=== PATIENT | female | born 1945 | race Caucasian/White ===

== ENCOUNTER 2020-04-18 08:25 | Emergency (ER) | payer MEDICARE, SELFPAY ==
--- NOTE | 2020-04-18 08:37 | ED.SKABFB ---
HPI - Skin/Abscess/Foreign Bdy General Chief complaint: Skin/Abscess/Foreign Body Stated complaint: Rash on feet/chest/eyes Time Seen by Provider: 04/18/20 08:46 Source: patient and RN notes reviewed Mode of arrival: ambulatory Limitations: no limitations History of Present Illness HPI narrative: This is a 74 years old female presents to the office for an evaluation of itchy rash on her left foot for one week. She was working outside in her yard prior to rash. She has tried calamine lotion and benadry with minimal relief. Denies sick contact. She recently move here; so she does not have a PCP yet. Admits to history of HTN, HLD, and chronic swelling legs (mostly in the right leg). Denies history of DVT. Related Data Home Medications Medication Instructions Recorded Confirmed amlodipine 04/18/20 atorvastatin 04/18/20 hydrochlorothiazide 04/18/20 lisinopril 04/18/20 Allergies Allergy/AdvReac Type Severity Reaction Status Date / Time No Known Allergies Allergy Verified 04/18/20 08:39 Review of Systems Review of Systems: Narrative: CONSTITUTIONAL: Denies fever, chills ENT: Denies rhinorrhea, congestion, sore throat CARDIOVASCULAR: Denies chest pain, palpitation, edema. RESPIRATORY: Reports chronic dyspnea secondary to COPD. GASTROINTESTINAL: Denies abdominal pain, nausea, vomiting SKIN:Reports itchy rash on her left foot MUSCULOSKELETAL: Reports left foot and ankle swelling. Denies injury/trauma. NEUROLOGIC: Denies lightheaded All other systems reviewed are negative, except as documented in HPI. PMFSH Past Medical History Medical History COPD (chronic obstructive pulmonary disease) HLD (hyperlipidemia) HTN (hypertension) Social History Social History Smoking status: Current every day smoker Comments At time of signature, I agree with nursing past medical, surgical, social and family history. There is no relevant family history pertinent to the presenting complaint. Exam Narrative: Exam Narrative: GENERAL: This is a well-nourished, well-developed patient, in no apparent distress. NECK: Neck supple, non-tender without lymphadenopathy, masses or thyromegaly. CARDIOVASCULAR: Regular rate and rhythm without murmurs, gallops, or rubs. RESPIRATORY: Clear to auscultation. Breath sounds equal bilaterally. No wheezes, rales, or rhonchi. GASTROINTESTINAL: Abdomen soft, non-tender, nondistended. Bowel sounds are active. No hepato-splenomegaly, or palpable masses. No guarding. SKIN: left dorsal foot noted open lesion, some with scab with erythema, edematous with clear dermarcation of her left foot. NEURO: awake, alert, and oriented to person, place and time. There were no obvious focal neurologic abnormalities. Steady gait EXTREMITIES: Normal range of motion. Bilateral ankles swelling 2+noted. Pedal pulses intact. NO calf tenderness. [place] Coma Scale Eye Opening: Spontaneous 4 [place] Coma Scale Motor: Obeys Commands 6 [place] Coma Scale Verbal: Oriented 5 Course Vital Signs Vital signs: Vital Signs Temperature 98.1 F 04/18/20 08:40 Pulse Rate 65 04/18/20 08:40 Respiratory Rate 24 H 04/18/20 08:40 Blood Pressure 144/57 H 04/18/20 08:40 Pulse Oximetry 99 04/18/20 08:40 Temperature 98.1 F 04/18/20 08:40 Pulse Rate 65 04/18/20 08:40 Respiratory Rate 24 H 04/18/20 08:40 Blood Pressure 144/57 H 04/18/20 08:40 Pulse Oximetry 99 04/18/20 08:40 MDM - Skin/Abscess/Foreign Bdy MDM Narrative Medical decision making narrative: Discharge instructions reviewed with patient, as well as provided in writing per nursing staff. The instructions also include specific and strict return/GO TO THE ER as well as f/u information. All questions have been answered, and the patient deny any further questions with discharge and discharge plan. Differential Diagnosis Differentia
[2020-04-18 08:40] VITALS: BP 144/57; PULSE 65; RESP 24; TEMP 36.7; O2SAT 99
== END 2020-04-18 09:10 | disposition home or self-care (01) ==
PROVIDERS: Emergency Provider Nurse Practitioner
DX: L03.116 Cellulitis of left lower limb (principal); L24.7 Irritant contact dermatitis due to plants, except food; J44.9 Chronic obstructive pulmonary disease, unspecified; E78.5 Hyperlipidemia, unspecified; I10 Essential (primary) hypertension; F17.200 Nicotine dependence, unspecified, uncomplicated
CPT/HCPCS: 99213; G0463